=== PATIENT | male | born 1945 | race Caucasian/White ===

== ENCOUNTER 2024-05-06 06:21 | Observation (INO) ==
[~2024-05-06 06:21] MED LIST: Naloxone 0.4 mg VIAL 0.4 mg/ml 1 ml VIAL IV PRN; fentaNYL 100 mcg/2 ml 50 MCG/ML VIAL IV PRN
[2024-05-06] MEDS ORDERED: ceFAZolin 2 GM in NS PREMIX 2 GM/100 ML BAG IVPB ONE (06:56)
[2024-05-06] MEDS ORDERED: Tranexamic Acid 1 GM/100ML BAG 2,000 MG/200 ML BAG IV ONE (06:56)
[2024-05-06 07:08] LABS: Rapid COVID-19 Molecular Undetected (Undetected)
[2024-05-06 07:12] LABS: INR 0.94 (0.83-1.13)
[2024-05-06] MEDS ORDERED: Midazolam 2 mg/2 ml VIAL 1 mg/ml 2 ml VIAL (2 mg) ONE ×2 (07:49→08:19)
[2024-05-06] MEDS ORDERED: fentaNYL 100 mcg/2 ml 50 MCG/ML VIAL ONE (07:49)
[2024-05-06] MEDS ORDERED: Lidocaine 2% PF 5 ML VIAL ONE (07:50)
[2024-05-06] MEDS ORDERED: Phenylephrine IV 10 MG/ML 1 ml VIAL ONE (07:50)
[2024-05-06] MEDS ORDERED: Ondansetron 4 mg VIAL 2 MG/ML 2 ml VIAL ONE (07:54)
[2024-05-06] MEDS ORDERED: ROPIVACAINE 5 MG/ML 30 ML BTL (0.5%) ONE ×2 (08:19→09:12)
[2024-05-06] MEDS ORDERED: Acetaminophen IV 1 GM/100ML 1,000 MG/100 ML BAG IV ONE (11:03)
[2024-05-06] MEDS ORDERED: Propofol 10 MG/ML 20 ML BTL ONE ×2 (11:36→12:11)
[2024-05-06] MEDS ORDERED: Magnesium Hydroxide LIQ 30 ML UDC PO PRN (12:42)
[2024-05-06] MEDS ORDERED: Lactulose 30 ml UDC PO PRN (12:42)
[2024-05-06] MEDS ORDERED: Morphine 2 MG/ML SYRINGE IV PRN (12:42)
[2024-05-06] MEDS ORDERED: Ondansetron 4 mg VIAL 2 MG/ML 2 ml VIAL IV PRN (12:42)
[2024-05-06] MEDS ORDERED: Calcium Carb (TUMS) 500 mg CHEW TAB PO PRN (12:42)
[2024-05-06] MEDS ORDERED: Ondansetron ODT 4 mg TAB 4 MG TAB PO PRN (12:42)
[2024-05-06] MEDS ORDERED: Albuterol HFA INHALER 8 gm MDI INH PRN (13:23)
[2024-05-06] MEDS ORDERED: Mometasone/Formoter 100/5 MDI INH PRN (13:23)
[2024-05-06] MEDS: Lactated Ringers 1000 ml BAG 1,000 ML IV SCH ×2 (15:50→17:32)
[2024-05-06] MEDS: ceFAZolin 2 GM in NS PREMIX 2 GM/100 ML BAG IVPB SCH (18:05)
[2024-05-06] MEDS: Magnesium Hydroxide LIQ 30 ML UDC PO SCH (21:20)
[2024-05-06] MEDS: Buffered Lidocaine 1% SYRIN 1 ml INTRADERM ONE (23:44)
[2024-05-07 06:10] LABS: Hematocrit 37.9 % (38-53); Hemoglobin 13.2 g/dL (13.2-16.3); Mean Platelet Volume 7.9 fL (7.5-11.2); Platelet Count 170 10^3/uL (150-450)
[2024-05-07 06:39] LABS: Calcium 8.3 mg/dL (8.6-10.3); Creatinine, Serum 0.99 mg/dL (0.67-1.17); Potassium 4.3 mmol/L (3.5-5.0)
[2024-05-07] MEDS: Vitamin THERAPEUTIC TAB PO SCH (08:12)
== END 2024-05-07 14:30 | disposition home or self-care (01) ==
LOC: SSU 06:21 → OR 06:21
PROVIDERS: ADMIT Orthopaedic Surgery Adult Reconstructive Orthopaedic Surgery; ATTEND Orthopaedic Surgery Adult Reconstructive Orthopaedic Surgery